=== PATIENT | male | born 1960 | race Caucasian/White ===

== ENCOUNTER 2017-09-17 10:59 | Emergency (ER) | payer OTHER ==
[~2017-09-17] VITALS: Ht 170.2 cm; Wt 81.6 kg
[2017-09-17 11:08] VITALS: BP 123/81
[2017-09-17] MEDS ORDERED: TAMIFLU75 M1 PO (11:39)
--- NOTE | 2017-09-17 11:40 | ED INFLUENZA/URI COMPLAINT ---
History of Present Illness General Chief Complaint: Upper Respiratory Sx/Fever Stated Complaint: ? FLU Source: patient Exam Limitations: no limitations Vital Signs & Intake/Output Vital Signs & Intake/Output Vital Signs Date Time Temp Pulse Resp B/P B/P Pulse O2 O2 Flow FiO2 Mean Ox Delivery Rate 09/17 1140 100.1 09/17 1108 100.1 91 15 123/81 97 Room Air Room Air Allergies Coded Allergies: Penicillins (ANXIETY 09/17/17) Reconcile Medications Diltiazem HCl (Diltiazem 24HR ER) 240 MG CAP.ER.24H 1 CAP PO DAILY AFIB ( Reported) Oseltamivir Phosphate (Tamiflu) 75 MG CAPSULE 1 CAP PO BID influenza a Triage Note: PT TO ED FOR C/C OF BODY ACHES X 1 DAY, FEVERS, COUGH. AROUND SICK CONTACTS OVER THE WEEKEND. FEBRILE IN TRIAGE 100.1. MEDICATED WITH MOTRIN AND FLU SWAB OBTAINED. Triage Nurses Notes Reviewed? yes Onset: Abrupt Duration: day(s): (2-3), constant, continues in ED, getting worse Timing: single episode today Severity: mild, moderate Prior Episodes/Possible Cause: no prior episodes No Modifying Factors: none Associated Symptoms: cough, fever/chills, headache, muscle aches, nasal congestion, nasal drainage, sore throat HPI: 56-year-old male past medical history of hypertension presents for evaluation of bodyaches, fever, chills, sore throat, congestion and rhinorrhea. Patient states symptoms started 2 or 3 days ago 3 Active vacation. He denies any chest pain palpitations or shortness of breath. No nausea vomiting or diarrhea. He is not taking any medicine for her symptoms. He does report some sick contacts with a cold. He states that today the symptoms got worse especially bodyaches. He is a former smoker quit many years ago. No history of underlying lung disease. Past History Travel History Traveled to [place] past 21 day No Medical History Any Pertinent Medical History? 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 No Review of Systems Review of Systems Constitutional: Reports: fever, malaise. EENTM: Reports: nasal congestion. Respiratory: Reports: see HPI, cough. Cardiovascular: Reports: no symptoms. GI: Reports: no symptoms. Genitourinary: Reports: no symptoms. Musculoskeletal: Reports: see HPI, muscle pain, muscle stiffness. Skin: Reports: no symptoms. Neurological/Psychological: Reports: no symptoms. Hematologic/Endocrine: Reports: no symptoms. Immunologic/Allergic: Reports: no symptoms. All Other Systems: Reviewed and Negative Physical Exam Physical Exam General Appearance: well developed/nourished, no apparent distress, alert, awake Head: atraumatic, normal appearance Eyes: Bilateral: normal appearance, PERRL, EOMI. Ears, Nose, Throat: normal ENT inspection, moist mucous membrane Neck: normal inspection, supple, full range of motion Respiratory: normal breath sounds, chest non-tender, no respiratory distress, lungs clear Cardiovascular: regular rate/rhythm, normal peripheral pulses Peripheral Pulses: 2+ radial (R), 2+ radial (L) Gastrointestinal: normal bowel sounds, soft, non-tender, no organomegaly Back: normal inspection, normal range of motion, no vertebral tenderness Extremities: normal inspection, normal range of motion, no edema Neurologic/Psych: no motor/sensory deficits, awake, alert, oriented x 3, normal gait, normal mood/affect Skin: intact, normal color, warm/dry Lymphatic: no anterior cervical benji Core Measures Sepsis Present: No Sepsis Focused Exam Completed? No Progress Differential Diagnosis: influenza, otitis, pneumonia, pharyngitis, sinusitis Plan of Care: Orders Procedure Date/time Status RAPID VIRAL INFLUENZA A 09/17 1112 Complete VIRAL CULTURE 09/17 1112 Active Laboratory Tests 09/17/17 1112: Virus Culture Pending Microbiology 09/17 1113 NASOPHARYN: Influenza Virus A & B Rapid Smear - COMP INFLUENZA TYPE A Patient seen and evaluated. He currently has a low-grade temp of 100.3. He was medicated with Motrin at triage. Flu swab was obtained. There is no signs of bacterial infection on exam. Lungs are clear. No signs of hypoxia. Influenza testing came back and is positive. Patient will be covered with Tamiflu. Advised them to alternate between Tylenol and ibuprofen. Rest and drink plenty of fluids. Make a follow-up appointment with a primary care doctor for recheck in a few days. Wash hands and disinfect surfaces disinfect doorknobs avoid close contact with others. Discussed return precautions in detail. Case discussed with Dr. Gagnon he agrees. Initial ED EKG: none Departure Departure Disposition: HOME OR SELF CARE Condition: Stable Clinical Impression Primary Impression: Influenza A Referrals: Clarence Hernandez MD (PCP/Family) Additional Instructions: Take Tamiflu as directed for the full course. Tylenol 1000 mg every 6-8 hours as needed for pain or fevers. Wash your hands disinfect surfaces disinfect doorknobs. Make a follow-up appointment with your primary care doctor for a recheck in a few days. Monitor symptoms closely and return with any concerns. Departure Forms: Customer Survey General Discharge Information Prescriptions: Current Visit Scripts Oseltamivir Phosphate (Tamiflu) 1 CAP PO BID #10 CAP
[2017-09-17] MEDS ORDERED: DILTIAZEM 24HR240 MG PO (11:44)
== END 2017-09-17 11:46 ==
LOC: ERH 10:59
DX: J10.1 Influenza due to other identified influenza virus with other respiratory manifestations (principal); Z87.891 Personal history of nicotine dependence
CPT/HCPCS: 87804; 87804-59